=== PATIENT | male | born 1955 | race Caucasian/White ===

== ENCOUNTER → 2016-07-10 10:07 | Day surgery (SDC) | payer BC ==
[~2016-07-10 10:07] MED LIST: Buffered Lidocaine 1% SYRIN* 3 ML/SYR SYRINGE INTRADERM ONE; Bupivacaine 0.5% W/EPI SDV* 30 ML VIAL ONE; Dexamethasone IV* 4 MG/ML 1 ML (4 MG) ONE; HYDROcodone/ACETAMIN 5-325 MG* 1 TAB ONE; HYDROcodone/ACETAMIN 5-325 MG* 1 TAB PO PRN; HYDROmorphone* 1 MG/ML 1 ML SYR IV PRN; Ketorolac INJ* 30 MG/ML 1 ML VIAL ONE; Lidocaine 1% INJ* 10 MG/ML 30 ML SDV ONE; Midazolam* 1 MG/ML 5 ML VIAL (5 MG) ONE; Ondansetron INJ* 2 MG/ML VIAL IV PRN; Propofol* 10 MG/ML 20 ML BTL IV PUSH ONE; ceFAZolin 2 GM PREMIX(*) 2 GM/50 ML BAG IVPB ONE; fentaNYL* 50 MCG/ML 2 ML VIAL (100 MCG VIAL) IV PRN; fentaNYL* 50 MCG/ML 2 ML VIAL (100 MCG VIAL) ONE; oxyCODONE TAB* 5 MG TAB PO PRN
--- NOTE | 2016-07-10 14:43 | SURGPN ---
Brief Operative Note - Surgery Procedures: Pre-OP Diagnoses: Right inguinal hernia Post-op Diagnosis: same Procedure: open Right inguinal hernia repair with mesh Surgeon: Florian Asst: Viktoriya Laresthesia: Thomas Stapleton EBL: 50cc IVF: 1500cc LR Specimen: hernia sac Drains: none
[2016-07-10 15:38] VITALS: BP 117/84
--- NOTE | 2016-07-18 15:55 | OP ---
DATE OF OPERATION: 07/10/16 - SDS DATE OF : 51 SURGEON: Marcus Du MD PRODUCT DEVELOPMENT ACTUARY: [facility] ANESTHESIOLOGIST: Dr. Stapleton. ANESTHESIA: Local MAC. PRE-OP DIAGNOSIS: Right inguinal hernia. POST-OP DIAGNOSIS: Right inguinal hernia. OPERATIVE PROCEDURE: Open right inguinal hernia repair with mesh. ESTIMATED BLOOD LOSS: 50 cc. IV FLUIDS: 1500 cc of lactated Ringer's. SPECIMEN: Hernia sac. DRAINS: None. DESCRIPTION OF PROCEDURE: The patient was identified in the preoperative area, marked, and consent signed. He was brought to the operating room and placed on the operating room table in the supine position. Gentle sedation was given. The patient's right groin was clipped of hair and then prepped and draped in a standard surgical fashion. A time-out was performed. An inguinal incision was made, this was deepened down through the Rea's and Camper's fascia to the external oblique aponeurosis. This was incised along the direction of the fibers and extended to the external ring. The ilioinguinal nerve was isolated and protected until the very end of the procedure when we did ligate it. Flaps were made both cephalad and caudad along the inguinal canal and the spermatic structures were isolated. An indirect hernia was then identified. The sac was both bluntly and sharply dissected from the spermatic structures right down to the internal ring. We did enter into the sac at one point and it was sutured close with a pursestring suture. Portion of the sac was then passed off as specimen. With this reduced, the floor of the inguinal canal was cleared off and a Covidien Parietex right- sided mesh was opened up. This was placed on to the inguinal floor and the patch was opened up in the appropriate fashion to recreate the external ring. It was sutured with one suture at the pubic tubercle and one at the shelving edge of the inguinal ligament. Wound was irrigated, hemostasis achieved, and defect was closed first at the aponeurosis with running 2-0 Polysorb suture and then 3-0 Polysorb suture at the Rea's fascia and also the subcutaneous layer. 4-0 Monocryl subcuticular suture was then applied followed by Steri- Strips and sterile dressing. The patient tolerated the procedure well, was woken up in the OR, and transferred to the PACU in stable condition. CC: [facility]; Dr. Tomás Amin* [id number]/[facility] #: [id number] [place]
== END | disposition home or self-care (01) ==
LOC: OR 10:07
PROVIDERS: ATTEND Surgery
DX: K40.90 Unilateral inguinal hernia, without obstruction or gangrene, not specified as recurrent (principal); I10 Essential (primary) hypertension; E78.00 Pure hypercholesterolemia, unspecified
CPT/HCPCS: C1781; J0690; J1100; J1885; J2001; J2250; J2704; J3010